=== PATIENT | male | born 1995 | race Caucasian/White ===

== ENCOUNTER 2022-05-27 18:18 | Emergency (ER) | payer SELFPAY ==
[~2022-05-27] VITALS: Ht 177.8 cm; Wt 74.8 kg
[2022-05-27 19:24] VITALS: BP 134/68
--- NOTE | 2022-05-27 21:00 | NUR ---
PT WAS DISCHARGED BUT LEFT WITHOUT SIGNING ACI
== END 2022-05-27 21:00 | disposition home or self-care (01) ==
LOC: MED 18:18
DX: F15.229 Other stimulant dependence with intoxication, unspecified (principal); R41.82 Altered mental status, unspecified
CPT/HCPCS: 99283

== ENCOUNTER 2022-07-08 08:36 | Emergency (ER) | payer OTHER ==
[~2022-07-08] VITALS: Ht 182.9 cm; Wt 63.5 kg
[2022-07-08 08:39] VITALS: BP 138/95
--- NOTE | 2022-07-08 08:45 | NUR ---
DR LAI AT BEDSIDE EVALUATING PT
[2022-07-08] MEDS ORDERED: ONDANSETRON 4 MG ODT PO ONE (08:50)
--- NOTE | 2022-07-08 09:35 | NUR ---
25/M PRICE FROM STRE[address] S/P KNOCKING ON [employer] DOOR REQUESTING 911 BE CALLED. PATIENT REPORTS HE "TOOK A COUPLE HITS OF FENTANYL" 1 HOUR PRIOR TO EMS ARRIVAL. PATIENT STATING HE BEGAN FEELING ANXIOUS AND NAUSEATED. PATIENT DENIES ABD PAIN, CP, SOB, FEVERS, COUGH.
--- NOTE | 2022-07-08 09:37 | NUR ---
PT AT REST W/ EYES CLOSED IN RIGHT LATERAL RECUMBENT . RESPIRATIONS EVEN AND UNLABORED. PT ON RECORD PRESSMAN
[2022-07-08] MEDS ORDERED: COROTSOL OT (10:33)
[2022-07-08 10:52] VITALS: BP 121/77
--- NOTE | 2022-07-08 10:52 | NUR ---
Patient discharged with v/s stable. Written and verbal after care instructions given and explained. Patient alert, oriented and verbalized understanding of instructions. Ambulatory with steady gait. All questions addressed prior to discharge. ID band removed. Patient advised to follow up with PMD. Rx of CORTISPORIN OTIC SOLUTION given.. Opportunity to ask questions provided and answered. PROVIDED W/ UBER RIDE TO [address] [facility] [id number] AND HOMELESS/ SUBTANCE ABUSE PACKET
--- NOTE | 2022-07-08 11:07 | NUR ---
The patient's care was reviewed and supervised by Dot Serrano RN.
--- NOTE | 2022-07-08 12:28 | NUR ---
PT PROVIDED WITH CLOTHING, HOMELESS LUNCH AND UBER. PT LEFT IN UBER AT THIS TIME.
== END 2022-07-08 10:52 | disposition home or self-care (01) ==
LOC: MED 08:36
DX: F19.10 Other psychoactive substance abuse, uncomplicated (principal); F20.9 Schizophrenia, unspecified; H60.92 Unspecified otitis externa, left ear; F32.A Depression, unspecified; F17.200 Nicotine dependence, unspecified, uncomplicated; F15.90 Other stimulant use, unspecified, uncomplicated
CPT/HCPCS: 93005; 99285; Q0162